=== PATIENT | male | born 1975 | race Caucasian/White ===

== ENCOUNTER 2022-03-05 08:41 | Emergency (ER) | payer OTHER ==
[2022-03-05 08:50] VITALS: BP 125/79; PULSE 87; RESP 16; TEMP 98.1
--- NOTE | 2022-03-05 09:36 | ED ---
ENT HPI - General Chief complaint: ENT Stated complaint: Ear ache Time Seen by Provider: 03/05/22 08:50 Source: patient, RN notes reviewed Mode of arrival: ambulatory Limitations: no limitations - History of Present Illness Initial comments: This is a 46-year-old male who presents to the emergency department for right ear pain. States that the symptoms started yesterday, and almost seem improved today. He does have a history of seasonal allergies, but denies any other upper respiratory symptoms. He is currently being treated at the [facility] for hepatic fibrosis. He has a list of blood work with him that he needs done and requested it be done while he is in the emergency department. Denies any fevers, chills, sore throat, cough, dyspnea, chest pain, palpitations, abdominal pain, nausea, vomiting, diarrhea, back pain, or headaches. MD complaint: ear pain Onset/Timin -: days(s) Location: R ear - Related Data Previous Rx's Medication Instructions Recorded Carbamide Peroxide [Debrox Otic] 5 drops BOTH EARS BID #15 ml 03/05/22 Fluticasone Nasal [place] [Flonase 2 spray EA NOSTRIL DAILY #16 gm 03/05/22 Nasal [place]] Allergies Allergy/AdvReac Type Severity Reaction Status Date / Time cephalexin [From Keflex] Allergy Unknown Verified 03/05/22 08:50 nitrofurantoin Allergy Unknown Verified 03/05/22 08:50 [From Macrobid] sulfamethoxazole Allergy Unknown Verified 03/05/22 08:50 [From Bactrim] trimethoprim [From Bactrim] Allergy Unknown Verified 03/05/22 08:50 wheat Allergy Unknown Verified 03/05/22 08:50 Review of Systems ROS Statement: Those systems with pertinent positive or pertinent negative responses have been documented in the HPI. ROS Other: All systems not noted in ROS Statement are negative. Past Medical History Past Medical History: Liver Disease, Sleep Apnea/CPAP/BIPAP Additional Past Medical History / Comment(s): liver fibrosis stage 2 History of Any Multi-Drug Resistant Organisms: None Reported Additional Past Surgical History / Comment(s): liver biopsy Past Psychological History: No Psychological Hx Reported Smoking Status: Never smoker Past Alcohol Use History: None Reported Past Drug Use History: None Reported General Exam Limitations: no limitations General appearance: alert, in no apparent distress Head exam: Present: atraumatic, normocephalic, normal inspection ENT exam: Present: other (Bilateral cerumen impaction. No bulging or erythema of the TMs bilaterally. No movement of the right TM with forced Valsalva.) Respiratory exam: Present: normal lung sounds bilaterally. Absent: respiratory distress, wheezes, rales, rhonchi, stridor Cardiovascular Exam: Present: regular rate, normal rhythm, normal heart sounds. Absent: systolic murmur, diastolic murmur, rubs, gallop, clicks Neurological exam: Present: alert, oriented X3, CN II-XII intact Psychiatric exam: Present: normal affect, normal mood Skin exam: Present: warm, dry, intact, normal color. Absent: rash Course Vital Signs 03/05/22 08:46 Temperature 98.1 F Pulse Rate 87 Respiratory 16 Rate Blood Pressure 125/79 O2 Sat by Pulse 96 Oximetry Medical Decision Making - Medical Decision Making This is a 46-year-old male who presents to the emergency department for right ear pain. Patient's symptoms and physical exam are most consistent with a eustachian tube dysfunction. Prescription for Flonase provided as well as Debrox to help with the cerumen impaction. Advised that the Flonase may dry out his nose to some extent. It will also take 2-3 days before he will notice significant benefit with the Flonase. Instructed him to take ibuprofen for the next few days as well to help with swelling and inflammation. He can also consider trying a decongestant or antihistamine if the first treatments are not helpful. Patient's requested blood work was obtained in the emergency department. I had registration set him up for the patient and portal, and I advised that I am not able to follow up on this and he will need to check the results for himself. If he is unable to find them in the portal, he will need to call for the results. Return precautions reviewed in depth, the patient is instructed to return to the emergency department with any new, worsening, or concerning symptoms. Patient verbalized understanding. This case was discussed in detail with the attending ED physician. Presentation, findings, and treatment plan discussed in detail as well. - Lab Data Lab Results 03/05/22 03/05/22 03/05/22 Range/Units 09:10 09:10 09:10 PT 11.6 (9.0-12.0) sec INR 1.1 (<1.2) Total Bilirubin 1.0 (0.2-1.3) mg/dL Conjugated Bilirubin 0.0 (0.0-0.3) mg/dL Unconjugated Bilirubin 0.8 (0.0-1.1) mg/dL Delta Bilirubin 0.2 (0.0-0.2) mg/dL AST 406 H (17-59) U/L ALT 887 H (4-49) U/L Alkaline Phosphatase 58 (38-126) U/L Total Protein 7.3 (6.3-8.2) g/dL Albumin 4.5 (3.5-5.0) g/dL EBV Capsid Ag IgG Ab AI EBV Capsid Ag IgG Intrp (NEGATIVE) EBV Capsid Ag IgM Ab AI EBV Capsid Ag IgM Intrp (NEGATIVE) EBV Early Antigen IgG AI EBV EA IgG Ab Interp (NEGATIVE) EBV Nuclear Ag IgG Ab AI EBV Nuc Ag IgG Interp (NEGATIVE) Hepatitis A IgM Ab Nonreactive (Nonreactive) Hep Bs Antigen Nonreactive (Nonreactive) Hep Bs Antibody Nonreactive (Nonreactive) Hep Bs Antibody, Quant 3.5 mIU/mL Hep B Core IgM Ab Nonreactive (Nonreactive) 03/05/22 Range/Units 09:10 PT (9.0-12.0) sec INR (<1.2) Total Bilirubin (0.2-1.3) mg/dL Conjugated Bilirubin (0.0-0.3) mg/dL Unconjugated Bilirubin (0.0-1.1) mg/dL Delta Bilirubin (0.0-0.2) mg/dL AST (17-59) U/L ALT (4-49) U/L Alkaline Phosphatase (38-126) U/L Total Protein (6.3-8.2) g/dL Albumin (3.5-5.0) g/dL EBV Capsid Ag IgG Ab >8.0 AI EBV Capsid Ag IgG Intrp POSITIVE A (NEGATIVE) EBV Capsid Ag IgM Ab 0.5 AI EBV Capsid Ag IgM Intrp NEGATIVE (NEGATIVE) EBV Early Antigen IgG 0.2 AI EBV EA IgG Ab Interp NEGATIVE (NEGATIVE) EBV Nuclear Ag IgG Ab >8.0 AI EBV Nuc Ag IgG Interp POSITIVE A (NEGATIVE) Hepatitis A IgM Ab (Nonreactive) Hep Bs Antigen (Nonreactive) Hep Bs Antibody (Nonreactive) Hep Bs Antibody, Quant mIU/mL Hep B Core IgM Ab (Nonreactive) Disposition Clinical Impression: Eustachian tube dysfunction, Hepatic fibrosis Disposition: HOME SELF-CARE Instructions (If sedation given, give patient instructions): Earache (ED) Additional Instructions: Return to the emergency department with any new, worsening, or concerning symptoms. Use the Flonase as 2 sprays in each nostril daily until you notice relief. This may dry out your nose to some extent. It will also take 2-3 days before you will notice significant benefit. Make sure you take ibuprofen for the next few days as well to help with swelling and inflammation. You can also consider drying a decongestant or antihistamine if the first treatments are not helpful. The Debrox eardrops can be used twice daily as needed to help with wax buildup. Follow-up on your patient portal regarding the results of your requested blood work. Prescriptions: Carbamide Peroxide [Debrox Otic] 5 drops BOTH EARS BID #15 ml Fluticasone Nasal [place] [Flonase Nasal [place]] 2 spray EA NOSTRIL DAILY #16 gm Is patient prescribed a controlled substance at d/c from ED?: No Referrals: Silvio Patel MD [Primary Care Provider] - 1-2 days
[2022-03-05 10:13] LABS: INR 1.1 (<1.2); Prothrombin Time 11.6 sec (9.0-12.0)
[2022-03-05 10:19] LABS: Albumin 4.5 g/dL (3.5-5.0); Bilirubin, Delta 0.2 mg/dL (0.0-0.2); Bilirubin,Unconjugated 0.8 mg/dL (0.0-1.1); Total Protein 7.3 g/dL (6.3-8.2)
[2022-03-05 17:01] LABS: Hepatitis B Surface AB- Quant 3.5 mIU/mL; Hepatitis B Surface Antibody Nonreactive (Nonreactive)
[2022-03-05 17:33] LABS: Hepatitis A Antibody IgM Nonreactive (Nonreactive); Hepatitis B Core IgM Nonreactive (Nonreactive); Hepatitis B Surface Antigen Nonreactive (Nonreactive)
[2022-03-07 09:02] LABS: EBV-EA (IgG) 0.2 AI; EBV-EBNA(IgG) >8.0 AI; EBV-VCA (IgG) >8.0 AI; EBV-VCA (IgM) 0.5 AI
== END 2022-03-05 10:10 | disposition home or self-care (01) ==
LOC: EC 08:41
DX: H69.81 Other specified disorders of Eustachian tube, right ear (principal); K74.00 Hepatic fibrosis, unspecified; Z88.2 Allergy status to sulfonamides; Z91.018 Allergy to other foods; Z88.8 Allergy status to other drugs, medicaments and biological substances; Z88.1 Allergy status to other antibiotic agents
CPT/HCPCS: 36415; 80076; 85610; 86663; 86664; 86665; 86705; 86706; 86709; 87340; 87529; 99283

== ENCOUNTER → 2022-03-18 | Outpatient (CLI) | payer OTHER ==
[2022-03-18 12:42] LABS: Basophils # (A) 0.1 k/uL (0-0.2); Basophils % (A) 1 %; Eosinophils # (A) 0.2 k/uL (0-0.7); Eosinophils % (A) 3 %; HCT 46.5 % (39.0-53.0); HGB 16.4 gm/dL (13.0-17.5); Lymphocytes # (A) 1.2 k/uL (1.0-4.8); Lymphocytes % (A) 16 %; MCH 31.9 pg (25.0-35.0); MCHC 35.2 g/dL (31.0-37.0); MCV 90.7 fL (80.0-100.0); Mean Platelet Volume 8.7; Monocytes # (A) 0.8 k/uL (0-1.0); Monocytes % (A) 10 %; Neutrophils % (A) 68 %; Platelet Count 133 k/uL (150-450); RBC 5.13 m/uL (4.30-5.90); RDW 12.5 % (11.5-15.5); WBC 7.4 k/uL (3.8-10.6)
[2022-03-18 18:48] LABS: INR 1.07 (0.90-1.11); Prothrombin Time 11.7 sec (9.9-11.9)
[2022-03-18 18:51] LABS: Hepatitis B Core IgM Nonreactive (Nonreactive); Hepatitis B Surface Antigen Nonreactive (Nonreactive)
[2022-03-18 19:27] LABS: Hepatitis A Antibody IgM Nonreactive (Nonreactive); Hepatitis B Core IgM Nonreactive (Nonreactive); Hepatitis B Surface Antigen Nonreactive (Nonreactive); Hepatitis C IgG Antibody Nonreactive (Nonreactive)
== END | disposition home or self-care (01) ==
LOC: LABWHC1 10:36
PROVIDERS: ATTEND Internal Medicine
DX: R74.8 Abnormal levels of other serum enzymes (principal)
CPT/HCPCS: 36415; 80074; 85025; 85610; 86694; 86695; 86696; 86705; 87340; 87517; 87522

== ENCOUNTER → 2023-02-09 | Outpatient (CLI) | payer OTHER ==
--- NOTE | 2023-02-09 11:52 | BD ---
EXAMINATION TYPE: Axial Bone Density DATE OF EXAM: 02/09/2023 CLINICAL HISTORY: 47 years old Male. ICD-10 CODE: K75.4 AUTOIMMUNE HEPATITIS Height: 67.5in Weight: 250lb FRAX RISK QUESTIONS: Glucocorticoids (More than 3mos): yes (Ex: prednisone, prednisolone, methylprednisolone, dexamethasone, and hydrocortisone). History of Fracture in Adulthood: no Secondary Osteoporosis: 5. Chronic liver disease: yes Rheumatoid Arthritis: potential RISK FACTORS HISTORY OF: Family History of Osteoporosis: yes Active: yes Lost more than 2 inches in height since high school: yes Poor Health: fair MEDICATIONS: Prednisone or other steroids: yes How Lon years Additional Medications: calcium vitamin d Additional History: autoimmune hepatitis EXAM MEASUREMENTS: Bone mineral densitometry was performed using the [employer] System. Bone mineral density as measured about the Lumbar spine is: ----- L1-L4(G/cm2): 1.012 T Score Values are as follows: ----- L1: -1.9 ----- L2: -0.9 ----- L3: -1.6 ----- L4: -1.4 ----- L1-L4: -1.4 Z Score Values are as follows: ----- L1: -2.7 ----- L2: -1.8 ----- L3: -2.6 ----- L4: -2.3 ----- L1-L4: -2.3 First dexa at [facility] Bone mineral density about the R hip (g/cm2): 1.031 Bone mineral density about the L hip (g/cm2): 1.016 T Score values are as follows: -----R Neck: -0.3 -----L Neck: -0.8 -----R Total: 0.2 -----L Total: 0.1 Z Score values are as follows: -----R Neck: -0.5 -----L Neck: -1.1 -----R Total: -0.6 -----L Total: -0.7 FRAX%s: The graph provided illustrates a 4.6% chance for a major osteoporotic fx and a 0.4% chance fo r the hips probability for fx in 10 years time. IMPRESSION: Osteopenia (T Score between -2.5 and -1). There is slightly increased risk of fracture and the patient may be considered for treatment. Re-Screen 2-5 years. NOTE: T-SCORE=SD OF THE YOUNG ADULT MEAN.
== END | disposition home or self-care (01) ==
LOC: RADBDWWP 08:53
PROVIDERS: ATTEND Internal Medicine
DX: M81.0 Age-related osteoporosis without current pathological fracture (principal); M85.89 Other specified disorders of bone density and structure, multiple sites; K75.4 Autoimmune hepatitis; D84.9 Immunodeficiency, unspecified
CPT/HCPCS: 77080